=== PATIENT | male | born 1965 | race Caucasian/White ===

== ENCOUNTER → 2017-03-10 | Outpatient (CLI) | payer BC ==
[2017-03-10 11:10] VITALS: BP 112/79
[2017-03-10 11:25] VITALS: BP 127/84
--- NOTE | 2017-03-10 15:16 | RADIOLOGY REPORT PS360 ---
CHEST(2 VIEWS-NOT PORTABLE) HISTORY: COPD ORDERING PHYSICIAN: FIORELLA PARRA MD PATIENT AGE: 51 years COMPARISON: None available FINDINGS: Normal heart size. 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 Hyperinflation. No lobar consolidation or collapse. There is some eventration of the right hemidiaphragm. No acute bony abnormalities. IMPRESSION: Hyperinflation with eventration of the right hemidiaphragm consistent with obstructive chronic bronchitis
== END ==
LOC: RT 09:48
DX: J44.9 Chronic obstructive pulmonary disease, unspecified (principal)

== ENCOUNTER → 2017-04-16 | Outpatient (CLI) | payer BC | LOC: SL 20:04 | DX: G47.10 Hypersomnia, unspecified (principal); R06.83 Snoring; J44.9 Chronic obstructive pulmonary disease, unspecified ==